=== PATIENT | male | born 1985 | race African-American/Black ===

== ENCOUNTER 2024-05-10 06:14 | Emergency (ER) | payer SELFPAY ==
[2024-05-10 07:13] LABS: Hematocrit 37.9 % (39.6-49.0); Hemoglobin 12.8 g/dL (13.6-17.9); MCH 29.2 pg (27.0-35.0); MCHC 33.8 g/dL (32.0-36.0); MCV 86.5 fL (80-100); MPV 8.1 fL (7.6-11.3); Platelets 469 thou/uL (152-406); RBC Red Blood Cell Count 4.39 M/uL (4.33-5.43); Red Cell Distribution Width 14.2 % (12.1-15.2)
[2024-05-10 07:34] LABS: Specific Gravity > 1.030 (1.005-1.030); Sqamous Epithelial <5 /HPF (None Seen); Urine Bacteria <20 /HPF (<20); Urine Bilirubin 3+ (Negative); Urine Blood 3+ (OVER) (Negative); Urine Clarity Extremely Turbid (Clear); Urine Color Dark-Orange (Yellow); Urine Culture Reflex Order REFLEXED; Urine Glucose NEGATIVE (Negative); Urine Granular Casts >20 /LPF (None Seen); Urine Ketones 1+ (Negative); Urine Microscopic Reflex YN ORDER UMIC; Urine Mucus Slight /HPF (None Seen); Urine Nitrite NEGATIVE (Negative); Urine Protein 2+ (Negative); Urine RBC None Seen /HPF (None Seen); Urine Urobilinogen 2+ (Normal); Urine pH 6.5 (5.0-7.0)
[2024-05-10 08:07] LABS: Albumin 3.5 g/dL (3.4-5.0); Albumin/Globulin Ratio 1.4 (1.1-1.8); Anion Gap 12.9 mEq/L (5.0-15.0); Bilirubin Total 34.4 mg/dL (0.2-1.0); Globulin 2.5 g/dL (2.3-3.5); Potassium 5.9 mEq/L (3.5-5.1)
[2024-05-10] MEDS ORDERED: CEFTRIAXONE 1000 MG/VIAL ONE (08:13)
[2024-05-10] MEDS ORDERED: Acetylcysteine 6000mg/30mL IV ONE (08:13)
--- NOTE | 2024-05-10 08:13 | RAD REPORT ---
EXAMINATION: Ultrasound of the liver CLINICAL HISTORY: jaundice COMPARISON: None. FINDINGS: Liver: Visualized portions of the liver demonstrate normal echogenicity with no suspicious findings. Gallbladder: Mild sludge is present in the gallbladder. Bile ducts: No intrahepatic or extrahepatic biliary dilatation. Common bile duct not well seen but no t dilated. Fluid: No ascites. Spleen: Normal size. Measures 10 cm. IMPRESSION: Mild gallbladder sludge.
[2024-05-10] MEDS ORDERED: NA CHLORIDE 0.9% 50 ML ONE (08:14)
--- NOTE | 2024-05-10 08:14 | RAD REPORT ---
EXAMINATION: ONE VIEW CHEST XR CLINICAL INDICATION: DYSPNEA TECHNIQUE: Frontal chest projection is submitted. Examination is limited by patient positioning and t echnique. COMPARISON: No prior exam. FINDINGS: Lungs appear grossly clear. The heart is normal in size. No displaced fractures identified. IMPRESSION: No acute intrathoracic abnormalities.
[2024-05-10 08:15] LABS: Anisocytosis 2+; Band Neutrophils 4 % (0-1); Blood Morphology Comment NOTED (NOT SEEN); Differential Total Cells Count 100; Eosinophils 2 % (0-3); Lymphocytes 13 % (15-42); Macrocytosis 1+; Microcytosis 1+; Monocytes 16 % (0-10); Nucleated Red Blood Cells 11 /100WBC; Platelet Estimate ADEQ; Platelets Clumped NOTED; Polychromasia 1+; Segmented Neutrophils 63 % (40-80)
[2024-05-10 08:15] LABS: Barbiturates NEGATIVE (NEGATIVE); Benzodiazepines NEGATIVE (NEGATIVE); Cocaine NEGATIVE (NEGATIVE); METHAMPHETAM NEGATIVE (NEGATIVE); Methadone NEGATIVE (NEGATIVE); Opiates NEGATIVE (NEGATIVE); Phencyclidine NEGATIVE (NEGATIVE); THC Cannibis NEGATIVE (NEGATIVE)
[2024-05-10 08:16] LABS: Basophilic Stippling 1+; Howell-Jolly Bodies NOTED
[2024-05-10 08:20] LABS: PT Prothrombin Time 17.4 SECONDS (9.4-12.5); PTT, Activated Partial Thromb 24.8 SECONDS (24.3-36.9); Protime INR 1.67
--- NOTE | 2024-05-10 08:28 | ER ---
Nurse's Notes [facility] Name: Jesus Vazquez Age: 38 yrs Sex: Male : 1985 Arrival Date: 05/10/2024 Time: 06:14 Bed 4 Private MD: Diagnosis: Aceatimnophen overdose with toxicity;Acute liver failure Presentation: 05/10 06:33 Chief complaint: Patient states: vomiting and weakness X3 days. reports blood in urine lg3 and yellowing of eyes on arrival. Coronavirus screen: Client denies travel out of the [place] in the last 14 days. At this time, the client does not indicate any symptoms associated with coronavirus-19. Ebola Screen: No symptoms or risks identified at this time. Initial Sepsis Screen: Does the patient meet any 2 criteria? No. Patient's initial sepsis screen is negative. Does the patient have a suspected source of infection? No. Patient's initial sepsis screen is negative. Risk Assessment: Do you want to hurt yourself or someone else? Patient reports no desire to harm self or others. Onset of symptoms is unknown. 06:33 Method Of Arrival: Ambulatory lg3 06:33 Acuity: RAMEZ 3 lg3 07:14 Acuity: RAMEZ 2 ph Triage Assessment: 06:41 General: Appears in no apparent distress. ill, Behavior is calm, flat. Pain: Denies lg3 pain. EENT: Sclera/Cornea yellow in color. Neuro: Miller Agitation-Sedation Scale (RASS): -1 Drowsy Level of Consciousness is awake, Oriented to person, place, situation, Speech slow to respond. Cardiovascular: No deficits noted. Denies chest pain, shortness of breath. Respiratory: Airway is patent Respiratory effort is even, unlabored, Respiratory pattern is regular, symmetrical, Denies shortness of breath. GI: Reports nausea, vomiting. : Reports hematuria. Derm: No deficits noted. Skin is intact, is healthy with good turgor, Skin is dry, Skin is normal, Skin temperature is warm. Musculoskeletal: No deficits noted. No signs and/or symptoms reported regarding the musculoskeletal system. Circulation, motion, and sensation intact. Range of motion: intact in all extremities. Historical: - Allergies: 06:41 No Known Allergies; lg3 - Home Meds: 06:41 None [Active]; lg3 - PMHx: 06:41 None; lg3 - PSHx: 06:41 None; lg3 - Immunization history:: Adult Immunizations up to date. - Infectious Disease History:: Denies. - Social history:: Smoking status: Patient denies any tobacco usage or history of. Patient uses alcohol, occasionally. Patient/guardian denies using street drugs. Screenin:14 Abuse screen: Denies threats or abuse. Denies injuries from another. Nutritional ph screening: No deficits noted. Tuberculosis screening: No symptoms or risk factors identified. 07:34 [facility] ED Fall Risk Assessment (Adult) History of falling in the last 3 months, ph including since admission No falls in past 3 months (0 pts) Confusion or Disorientation No (0 pts) Intoxicated or Sedated No (0 pts) Impaired Gait No (0 pts) Mobility Assist Device Used No (0 pt) Altered Elimination No (0 pt) Score/Fall Risk Level 0 - 2 = Low Risk Oriented to surroundings, Maintained a safe environment, Provided non-skid footwear, Hourly rounding (assess needs \T\ fall precautionary measures) done. Assessment: 07:33 General: Appears in no apparent distress. Behavior is calm, cooperative. Neuro: Level ph of Consciousness is awake, alert, obeys commands, Oriented to person, place, time, situation. Cardiovascular: Capillary refill < 3 seconds in bilateral fingers Patient's skin is warm and dry. Cardiovascular: Edema is 1+ to left ankle, left foot, right ankle and right foot. Respiratory: Airway is patent Respiratory effort is labored, Respiratory pattern is tachypnea Patient placed on BiPAP:. GI: Abdomen is round Reports nausea. EENT: Sclera/Cornea jaundiced. Derm: Skin is pink, warm \T\ dry. Musculoskeletal: Range of motion:. 08:33 Reassessment: Patient appears in no apparent distress at this time. Patient and/or ph family updated on plan of care and expected duration. Pain level reassessed. Patient is alert, oriented x 3, equal unlabored respirations, skin warm/dry/pink. 10:00 Reassessment: Patient appears in no apparent distress at this time. No changes from ph previously documented assessment. Patient and/or family updated on plan of care and expected duration. Pain level reassessed. 14:44 Reassessment: REPORT TO MARITO PETERSON FOR [facility]. bp 15:38 Reassessment: EMS AT B/S FOR TRANSPORT. bp Vital Signs: 06:33 BP 137 / 97; Pulse 105; Resp 16; Temp 98.2(O); Pulse Ox 79% on R/A; Weight 104.33 kg lg3 (R); Height 5 ft. 9 in. (R); Pain 0/10; 06:56 Pulse Ox 86% on 5 lpm NC; lg3 06:56 Pulse Ox 88% on Non-rebreather mask; lg3 07:35 BP 147 / 103; Pulse 86; Resp 22; Pulse Ox 85% on BiPAP; ph 08:33 BP 136 / 104; Pulse 89; Resp 18; Pulse Ox 86% on BiPAP; FiO2 100 %; ph 09:30 BP 147 / 97; Pulse 89; Resp 18; Pulse Ox 85% on BiPAP; ph 10:30 BP 170 / 106; Pulse 123; Resp 18; Pulse Ox 81% on BiPAP; ph 11:30 BP 144 / 102; Pulse 98; Resp 18; Pulse Ox 81% on R/A; ph 12:30 BP 126 / 89; Pulse 94; Resp 18; Pulse Ox 82% on R/A; ph 14:00 BP 140 / 94; Pulse 95; Resp 15; Pulse Ox 98% ; bp 15:00 BP 126 / 89; Pulse 94; Resp 15; Pulse Ox 97% ; bp 06:33 Body Mass Index 33.96 (104.33 kg, 175.26 cm) lg3 06:33 Pain Scale: Adult lg3 Vitals: 13:10 Cardiac Rhythm Assessment Sinus rhythm. ph ED Course: 06:17 Patient arrived in ED. [id number] 06:21 Hugh Riojas DO is Attending Physician. ms3 06:41 Triage completed. lg3 06:41 Arm band placed on right wrist. lg3 06:47 Oxygen administration via nasal cannula \T\ 3L/min. lg3 06:56 Oxygen administration via non-rebreather mask \T\ 15L/min. lg3 06:59 Jesús Melendez, RN is Primary Nurse. bp 06:59 CBC with Diff Sent. vk 06:59 CMP Sent. vk 06:59 Lipase Sent. vk 06:59 Inserted saline lock: 20 gauge in left antecubital area, using aseptic technique. Blood vk collected. Flushed with 10 mL NS. 07:00 Initial lab(s) drawn, by me, sent to lab. vk 07:30 Attending Physician role handed off by Hugh Riojas DO rn 07:30 Marquis Mills MD is Attending Physician. rn 07:33 Primary Nurse role handed off by Jesús Melendez, KRISTEN ph 07:33 Jada Ruiz, RN is Primary Nurse. ph 07:34 Patient has correct armband on for positive identification. Bed in low position. Call ph light in reach. Side rails up X 1. Client placed on continuous cardiac and pulse oximetry monitoring. NIBP monitoring applied. manager decision support on. Door closed. Noise minimized. 07:45 CXR XRAY In Process Unspecified. EDMS 07:48 US Liver Only In Process Unspecified. EDMS 08:05 EKG done, by ED staff, reviewed by Marquis Mills MD. ph 08:32 initiated transfer to [facility]. bd 08:47 pt denied at [facility] due to no icu beds and pts being held in the ER,per Cynthia Jaramillo. bd 08:52 initiated transfer to [facility]. bd 09:07 pt denied due to no capabilities to take care of pt due to no hepatology or liver bd transplant services,per Clarissa. 09:27 initiated transfer to [facility]. bd 10:02 pt denied at [facility] due to no beds at this time, per Kathy. bd 10:14 pt denied at [facility] due to all [facility] hospitals being on transfer closure.per Earl. bd 12:00 doc to doc. bc6 15:39 No provider procedures requiring assistance completed. Patient transferred, IV remains bp in place. Administered Medications: 08:20 Drug: Rocephin IV 1 grams IV at calculated rate once; Given slow IV push per pharmacy ph instructions Route: IV; Rate: calculated rate; Site: left antecubital; 10:48 Follow up: IV Status: Completed infusion bp 09:02 Drug: Acetadote IV 150 mg/kg IV at calculated rate once; not to exceed 16.5 grams bp administer over 1 hour Route: IV; Rate: calculated rate; Site: left antecubital; 10:47 Follow up: IV Status: Completed infusion bp 10:47 Drug: Acetadote IV 50 mg/kg IV at calculated rate once; not to exceed 5.5 grams bp administer over 4 hours Route: IV; Rate: calculated rate; Site: right antecubital; 15:42 Follow up: IV Status: Completed infusion bp 10:47 Drug: Ondansetron IVP 4 mg IVP once; over 2 minutes Route: IVP; Site: right antecubital;bp 15:41 Follow up: Response: No adverse reaction bp 14:22 Drug: Ondansetron IVP 4 mg IVP once; over 2 minutes Route: IVP; Site: left antecubital; ph 15:41 Follow up: Response: No adverse reaction bp Medication: 07:34 VIS not applicable for this client. ph Outcome: 08:27 ER care complete, transfer ordered by . rn 15:43 Transferred by ground EMS bp 15:43 Condition: stable 15:43 Instructed on the need for transfer, 15:52 Patient left the ED. bp Signatures: Dispatcher [employer] EDMS Jeniffer Jay Roman, MD MD rn Hall, Patricia, RN RN ph Peltier, Brian, RN RN bp Able, Lacie, RN RN lg3 Hugh Riojas DO DO ms3 Joan Burger jj6 Tamika Hurst bc6 Rebekah Workman
--- NOTE | 2024-05-10 08:28 | EDPHYS ---
Physician Documentation [facility] Name: Jesus Vazquez Age: 38 yrs Sex: Male : 1985 Arrival Date: 05/10/2024 Time: 06:14 Bed 4 Private MD: ED Physician Marquis Mills HPI: 05/10 06:37 This 38 yrs old Black Male presents to ER via Unassigned with complaints of DARK URINE, ms3 YELLOWING OF THE EYES, EXTREME FATIGUE, Nausea/Vomiting. 06:49 Jesus Vazquez is a 38-year-old male presenting to the emergency department with ms3 symptoms of fatigue, and vomiting, which began three days ago. Jesus suspects that his symptoms might be related to taking a large amount of Tylenol three days ago, for a toothache. He is unsure of the exact quantity. He has not experienced any pain beyond the symptoms mentioned. Jesus reports dark urine starting yesterday but was unaware of his yellow eyes until it was mentioned during checking in. He does not consume alcohol.. Historical: - Allergies: 06:41 No Known Allergies; lg3 - Home Meds: 06:41 None [Active]; lg3 - PMHx: 06:41 None; lg3 - PSHx: 06:41 None; lg3 - Immunization history:: Adult Immunizations up to date. - Infectious Disease History:: Denies. - Social history:: Smoking status: Patient denies any tobacco usage or history of. Patient uses alcohol, occasionally. Patient/guardian denies using street drugs. ROS: 06:49 MS/Extremity: Negative for injury and deformity, Skin: Negative for injury, rash, and ms3 discoloration, 06:49 Constitutional: Positive for fatigue, malaise, 06:49 Eyes: Positive for icterus, Exam: 06:49 Constitutional: This is a well developed, well nourished patient who is awake, alert, ms3 and in no acute distress. 06:49 Respiratory: Lungs have equal breath sounds bilaterally, clear to auscultation and percussion. No rales, rhonchi or wheezes noted. No increased work of breathing, no retractions or nasal flaring. 06:49 MS/ Extremity: Pulses equal, no cyanosis. Neurovascular intact. Full, normal range of motion. 06:49 Eyes: Sclera: icterus, is present, 06:49 Cardiovascular: Rate: tachycardic, Rhythm: regular, Pulses: no pulse deficits are appreciated, 06:49 Neuro: slow to answer questions, 09:03 ECG was reviewed by the Attending Physician. rn Vital Signs: 06:33 BP 137 / 97; Pulse 105; Resp 16; Temp 98.2(O); Pulse Ox 79% on R/A; Weight 104.33 kg lg3 (R); Height 5 ft. 9 in. (R); Pain 0/10; 06:56 Pulse Ox 86% on 5 lpm NC; lg3 06:56 Pulse Ox 88% on Non-rebreather mask; lg3 07:35 BP 147 / 103; Pulse 86; Resp 22; Pulse Ox 85% on BiPAP; ph 08:33 BP 136 / 104; Pulse 89; Resp 18; Pulse Ox 86% on BiPAP; FiO2 100 %; ph 09:30 BP 147 / 97; Pulse 89; Resp 18; Pulse Ox 85% on BiPAP; ph 10:30 BP 170 / 106; Pulse 123; Resp 18; Pulse Ox 81% on BiPAP; ph 11:30 BP 144 / 102; Pulse 98; Resp 18; Pulse Ox 81% on R/A; ph 12:30 BP 126 / 89; Pulse 94; Resp 18; Pulse Ox 82% on R/A; ph 14:00 BP 140 / 94; Pulse 95; Resp 15; Pulse Ox 98% ; bp 15:00 BP 126 / 89; Pulse 94; Resp 15; Pulse Ox 97% ; bp 06:33 Body Mass Index 33.96 (104.33 kg, 175.26 cm) lg3 06:33 Pain Scale: Adult lg3 Procedures: 08:10 Performed ABG: Sterile procedures followed. Patient with contralateral blood flow. ms3 Right radial pulse palpated and ABG obtained. MDM: 06:37 Medical Screening Exam initiated ms3 07:25 Differential diagnosis: Acetaminophen toxicity vs Hepatitis vs Cholecystitis vs ms3 Hepatitis. 07:26 Transition of care: After a detail discussion of the patient's case, care is ms3 transferred to Marquis Mills MD. 08:25 Data reviewed: vital signs, nurses notes, lab test result(s), EKG, radiologic studies, rn plain films, ultrasound, and as a result, I will admit patient. Consideration of Admission/Observation Patient was admitted/placed on observation. Escalation of care including admission/observation considered. Counseling: I had a detailed discussion with the patient and/or guardian regarding the historical points, exam findings, and any diagnostic results supporting the discharge/admit diagnosis, lab results, radiology results, the need for further work-up and treatment in the hospital, the need to transfer to another facility, for higher level of care, [facility] does not immediately have the required specialist. ED course: ABG shows PO2 of 590, taken off bipap as patient is not in distress and oxygen saturation not accurate in the setting.. 08:26 ED course: I personally spent 35 minutes engaged in work directly related to the rn individual patient's care. This does not include any time spent performing procedures. The patient has been deemed critically ill because due to acute liver failure secondary to accidental Tylenol overdose, requiring Acetadote, artificial hypoxia requiring investigation with ABG, and organization of transfer to ICU with hepatology.. 12:19 ED course: Accepted for transfer to [facility], consulted with mental retardation nurse there and rn after explanation of artificial hypoxia and ABG results mental retardation nurse is okay with admission to the floor. Hospitalist accepted for transfer.. 12:43 ED course: Patient has been declined at [facility] facility, declined at [facility] facility, rn declined at [facility] facility. I have done doc to doc at [facility] with hospitalist and mental retardation nurse, they will accept, they are waiting on a bed available to give to him.. 05/10 06:21 Order name: CBC with Diff; Complete Time: 08:23 05/10 06:21 Order name: CMP; Complete Time: 08:23 ms05/10 06:21 Order name: Lipase; Complete Time: 08:23 ms3 05/10 06:21 Order name: Urinalysis w/ reflexes; Complete Time: 07:41 ms05/10 06:37 Order name: Acetaminophen; Complete Time: 07:41 05/10 06:37 Order name: Hepatitis Panel; Complete Time: 12:00 ms3 05/10 06:49 Order name: AMMONIA; Complete Time: 08:00 ms3 05/10 06:58 Order name: ABG; Complete Time: 10:38 ms3 05/10 07:13 Order name: ETOH Level; Complete Time: 08:00 rn 05/10 07:13 Order name: PT-INR; Complete Time: 08:23 rn 05/10 07:13 Order name: Ptt, Activated; Complete Time: 08:23 rn 05/10 07:13 Order name: Salicylate; Complete Time: 08:23 rn 05/10 07:13 Order name: Urine Drug Screen; Complete Time: 08:23 rn 05/10 07:13 Order name: Blood Culture Adult (2) rn 05/10 07:13 Order name: Lactate w/ 2H reflex if indic.; Complete Time: 08:01 rn 05/10 07:29 Order name: Manual Differential; Complete Time: 08:23 EDMS 05/10 07:36 Order name: Urine Culture EDMS 05/10 08:03 Order name: Ghost Lactate-NO COLLECT Timer; Complete Time: 10:38 EDMS 05/10 13:13 Order name: Lactate Sepsis 2 HR Follow-up EDMS 05/10 06:37 Order name: US Liver Only; Complete Time: 08:23 ms3 05/10 06:49 Order name: CXR XRAY; Complete Time: 08:23 ms3 05/10 06:58 Order name: BIPAP ms3 05/10 07:13 Order name: EKG; Complete Time: 07:14 rn 05/10 06:21 Order name: IV Saline Lock; Complete Time: 06:59 ms3 05/10 06:21 Order name: Labs collected and sent; Complete Time: 06:59 ms3 05/10 06:48 Order name: Oxygen; Complete Time: 08:40 ms3 05/10 07:13 Order name: EKG - Nurse/Tech; Complete Time: 08:05 rn 05/10 07:13 Order name: Accucheck; Complete Time: 07:15 rn 05/10 07:13 Order name: Cardiac monitoring; Complete Time: 08:04 rn 05/10 07:13 Order name: IV Saline Lock - Large Bore; Complete Time: 07:15 rn 05/10 07:13 Order name: O2 Per Protocol; Complete Time: 07:15 rn 05/10 07:13 Order name: O2 Sat Monitoring; Complete Time: 07:15 rn 05/10 07:13 Order name: Vital Signs; Complete Time: 07:15 rn EC:03 Rate is 85 beats/min. Rhythm is regular. QRS [place] is Normal. FL interval is normal. QRS rn interval is normal. QT interval is normal. No Q waves. T waves are Normal. No ST changes noted. Clinical impression: NSR w/ Non-specific ST/T Changes. Interpreted by me. Reviewed by me. Administered Medications: 08:20 Drug: Rocephin IV 1 grams IV at calculated rate once; Given slow IV push per pharmacy ph instructions Route: IV; Rate: calculated rate; Site: left antecubital; 10:48 Follow up: IV Status: Completed infusion bp 09:02 Drug: Acetadote IV 150 mg/kg IV at calculated rate once; not to exceed 16.5 grams bp administer over 1 hour Route: IV; Rate: calculated rate; Site: left antecubital; 10:47 Follow up: IV Status: Completed infusion bp 10:47 Drug: Acetadote IV 50 mg/kg IV at calculated rate once; not to exceed 5.5 grams bp administer over 4 hours Route: IV; Rate: calculated rate; Site: right antecubital; 15:42 Follow up: IV Status: Completed infusion bp 10:47 Drug: Ondansetron IVP 4 mg IVP once; over 2 minutes Route: IVP; Site: right antecubital;bp 15:41 Follow up: Response: No adverse reaction bp 14:22 Drug: Ondansetron IVP 4 mg IVP once; over 2 minutes Route: IVP; Site: left antecubital; ph 15:41 Follow up: Response: No adverse reaction bp Disposition Summary: 05/10/24 08:27 Transfer Ordered Notes: Transfer Location: [facility] rn Reason: Higher level of care rn Condition: Stable rn Problem: new rn Symptoms: are unchanged rn Accepting Physician: (05/10/24 15:52) bp Diagnosis - Aceatimnophen overdose with toxicity rn - Acute liver failure rn Forms: - Medication Reconciliation Form rn - SBAR form data governance analyst time excluding procedures: 08:26 Critical care time: Bedside Care: 35 minutes. Total time: 35 minutes rn Signatures: Dispatcher [employer] EDMarquis Mason MD MD rn Hall, Patricia, RN RN ph Peltier, Brian RN Faby Roy RN RN lg3 Riojas, Hugh, DO DO ms3 Corrections: (The following items were deleted from the chart) 06:38 06:38 Liver Only+[email or web address] ordered. EDMS EDMS 12:20 12:19 ED course: Accepted for transfer to [facility] beth campos 15:52 08:27 Dr. campos bp
[2024-05-10] MEDS ORDERED: ACETYLCYSTEINE 15,000 MG in D5W 200 ML IV ONE (08:30)
[2024-05-10 10:13] LABS: Arterial Blood Carboxyhemoglob 1.3 % (0-1.5); Blood Gas Oxyhemoglobin 90.8 % (94-97); Blood Gas THB 11.7 g/dl (12-18); Blood O2 Saturation 98.6 % (92-98.5)
[2024-05-10] MEDS ORDERED: PROMETHAZINE INJ 25 MG/ML AMP ONE (10:38)
[2024-05-10 11:16] LABS: Hepatitis B Core IgM Nonreactive (Nonreactive); Hepatitis B surface AG Interp. Nonreactive (Nonreactive); Hepatitis C Virus Ab Nonreactive (Nonreactive)
[2024-05-10 11:17] LABS: HBsAG Nonreactive Report Report
[2024-05-10] MEDS ORDERED: ONDANSETRON 4 MG/2 ML VIAL ONE (14:16)
[2024-05-10] MEDS ORDERED: ATROPINE SULF 1 MG/10 ML SYR IV ONE (15:12)
[2024-05-10 18:28] VITALS: TEMP 98.2
[2024-05-10 18:48] VITALS: BP 126/89; O2SAT 97
--- NOTE | 2024-05-12 12:35 | EKG ---
Test Date: 2024-05-10 Test Time: 07:55:58 Instructor Looping: PH MEASUREMENT RESULTS: Intervals: Rate: 85 FL: 142 QRSD: 72 QT: 350 QTc: 416 [place]: P: 72 FL: 142 QRS: 54 T: 44 INTERPRETIVE STATEMENTS: Normal sinus rhythm Nonspecific ST and T wave abnormality Abnormal ECG No previous ECG available for comparison Electronically Signed On 05-12-24 12:31:56 MEMBER SERVICES REPRESENTATIVE by Meet Henry
== END 2024-05-10 15:52 | disposition short-term general hospital (02) ==
LOC: ER 06:14
DX: T39.1X1A Poisoning by 4-Aminophenol derivatives, accidental (unintentional), initial encounter (principal); K72.00 Acute and subacute hepatic failure without coma
CPT/HCPCS: 36415; 71045; 76705; 80053; 80074; 80143; 80179; 80307; 81001; 82077; 82140; 82805; 83605; 83690; 85025; 85610; 85730; 87040; 87086; 87088; 93005; 94660; 99285; J0132; J0461; J0696; J2405; J2550; J7060